=== PATIENT | male | born 1965 | race Caucasian/White ===

== ENCOUNTER 2016-11-21 18:02 | Observation (INO) | payer BC ==
[~2016-11-21] VITALS: Ht 172.7 cm; Wt 116.3 kg
[~2016-11-21 18:02] MED LIST: HYDROCHLOROTH12.5 M3 PO; LEXAPRO20 MG PO; OMEPRAZOLE20 MG PO; SIMVASTATIN20 MG PO
[2016-11-21 19:08] LABS: HEMATOCRIT 45.3 % (38.0-50.0); MCHC 34.2 G/DL (30.0-36.0); MCV 84.7 FL (86-99); MEAN PLAT.VOLUME 10.2 uM^3 (9.0-12.4); PLATELET COUNT 210 K/uL (156-360); RBC DIS.WIDTH-CV 12.2 % (11.8-14.6); RBC DIS.WIDTH-SD 37.1 % (39-53); RED BLOOD COUNT 5.35 M/uL (4.00-5.50); WHITE BLOOD COUNT 5.7 K/uL (4.1-10.2)
[2016-11-21 19:16] LABS: CHLORIDE 107 mEq/L (99-109)
[2016-11-21 19:17] LABS: POTASSIUM 4.4 mEq/L (3.7-5.4); SODIUM 139 mEq/L (136-147)
[2016-11-21 19:18] LABS: GLUCOSE 96 mg/dL (70-99)
[2016-11-21 19:20] LABS: ANION GAP 12 MEQ/L (2-14)
[2016-11-21 19:22] LABS: GFR ESTIMATE (CALCULATED) > 59 mL/min/
[2016-11-21 19:23] LABS: UREA NITROGEN (BUN) 19 mg/dL (9-23)
[2016-11-21 19:28] LABS: TROP-I INTERPRETATION NEGATIVE; TROPONIN-I < 0.01 ng/mL (0.0-0.30)
[2016-11-21] MEDS ORDERED: NABUMETONE500 MG PO (20:00)
[2016-11-21] MEDS ORDERED: AMITRIPTYLINE H25 MG PO (20:00)
[2016-11-21] MEDS ORDERED: BYSTOLIC10 MG PO (20:00)
[2016-11-21] MEDS ORDERED: FLONASE16 G1 BOTH NARES (20:01)
[2016-11-21] MEDS ORDERED: MEN 50 PLUS MU1 EACH PO (20:01)
[2016-11-21] MEDS ORDERED: CALCIUM 500 MG1 EACH PO (20:01)
[2016-11-21] MEDS ORDERED: POTASSIUM-9999 MG PO (20:02)
[2016-11-21] MEDS ORDERED: CYANOCOBALAM1000 MCG PO (20:02)
[2016-11-21 22:18] LABS: TOTAL BILIRUBIN 0.5 mg/dL (0.0-1.0)
[2016-11-21 22:19] LABS: ALKALINE PHOSPHATASE 71 IU/L (3-129)
[2016-11-21 22:22] LABS: DIRECT BILIRUBIN 0.1 mg/dL (0.0-0.3)
[2016-11-21 22:31] LABS: D-DIMER ELISA < 150.00 ng/mLDDU (<230)
[2016-11-21 22:44] VITALS: BP 122/83
[2016-11-21 23:18] LABS: HDL CHOLESTEROL 37 MG/DL (Desirable>=40); NON-HDL CHOLESTEROL 206 mg/dL (Desirable<160); TOTAL CHOLESTEROL 243 mg/dL (Desirable<200); TRIGLYCERIDES 414 MG/DL (Normal: <150)
[2016-11-22 01:37] LABS: HDL CHOLESTEROL 37 MG/DL (Desirable>=40); NON-HDL CHOLESTEROL 201 mg/dL (Desirable<160); TOTAL CHOLESTEROL 238 mg/dL (Desirable<200); TRIGLYCERIDES 407 MG/DL (Normal: <150)
[2016-11-22 02:20] LABS: TROP-I INTERPRETATION NEGATIVE; TROPONIN-I < 0.01 ng/mL (0.0-0.30)
[2016-11-22 04:37] VITALS: BP 118/56
[2016-11-22 07:23] VITALS: BP 135/92
[2016-11-22 07:31] LABS: Estimated Average Glucose 105 mg/dL (70-123); HEMOGLOBIN A1c (GLYCOHEMOGLOB) 5.3 % HGB (Below 5.7)
[2016-11-22 10:27] LABS: HEMATOCRIT 46.6 % (38.0-50.0); MCH 28.6 PG (29.0-34.0); MCHC 33.5 G/DL (30.0-36.0); MCV 85.5 FL (86-99); MEAN PLAT.VOLUME 10.3 uM^3 (9.0-12.4); PLATELET COUNT 195 K/uL (156-360); RBC DIS.WIDTH-CV 12.3 % (11.8-14.6); RED BLOOD COUNT 5.45 M/uL (4.00-5.50); WHITE BLOOD COUNT 6.6 K/uL (4.1-10.2)
[2016-11-22 10:47] LABS: TROP-I INTERPRETATION NEGATIVE; TROPONIN-I < 0.01 ng/mL (0.0-0.30)
[2016-11-22 10:57] LABS: ANION GAP 7 MEQ/L (2-14); CHLORIDE 105 MEQ/L (99-109); GFR ESTIMATE (CALCULATED) > 59 mL/min/; GLUCOSE 85 mg/dL (70-99); POTASSIUM 4.3 MEQ/L (3.7-5.4); SAMPLE HEMOLYSIS CHECK 0; SAMPLE ICTERIC CHECK 0; SAMPLE LIPEMIA CHECK 0; SODIUM 140 MEQ/L (136-147); UREA NITROGEN (BUN) 14 mg/dL (9-23)
== END 2016-11-22 12:32 | disposition home or self-care (01) ==
LOC: EME 18:02 → EDOF 21:34 → ENRESERV 21:43 → 5WEST 22:30
PROVIDERS: Hospitalist
DX: R07.9 Chest pain, unspecified (principal); I10 Essential (primary) hypertension; E78.2 Mixed hyperlipidemia; G47.33 Obstructive sleep apnea (adult) (pediatric); R20.2 Paresthesia of skin; E66.9 Obesity, unspecified; Z68.38 Body mass index [BMI] 38.0-38.9, adult; Z82.49 Family history of ischemic heart disease and other diseases of the circulatory system; F32.9 Major depressive disorder, single episode, unspecified
CPT/HCPCS: 70450; 70551; 71020; 80048; 80061; 80076; 83036; 84484; 85027; 85379; 93005; 93880; 99281; 99285; G0378